=== PATIENT | male | born 1945 | race Caucasian/White ===

== ENCOUNTER 2023-04-25 12:31 | Emergency (ER) | payer MEDICARE, MEDICAID ==
[~2023-04-25] VITALS: Ht 165.1 cm; Wt 58.1 kg
[2023-04-25 13:01] VITALS: BP 141/79; TEMP 98.3; O2SAT 97
== END 2023-04-25 13:31 | disposition home or self-care (01) ==
LOC: ER 12:33
DX: Z43.1 Encounter for attention to gastrostomy (principal)
CPT/HCPCS: 43762